=== PATIENT | female | born 1985 | race Caucasian/White ===

== ENCOUNTER → 2018-12-18 15:18 | Outpatient (CLI) | payer BC, SELFPAY ==
--- NOTE | 2018-12-18 | DI.US.S_ITS ---
PROCEDURE: US PELVIC COMPLETE INDICATIONS: EVALUATE IUD PLACEMENT TECHNIQUE: Real-time scanning was performed of the pelvic organs, with image documentation. Additional endovaginal scanning was necessary due to incomplete visualization of the adnexal and endometrial structures by transabdominal scanning. COMPARISON: None. FINDINGS: Transabdominal scanning: Limited scanning through the kidneys shows no hydronephrosis. No pathologic free abdominal or pelvic fluid. Endovaginal scanning: Uterus: Uterus is normal in size at 16.6 x 10.3 x 8.5 cm. The endometrium measures 8-9 mm in combined thickness. IUD is visualized although not well seen due to fibroid. It appears appropriately positioned. Right intramural fibroid measuring 8.8 x 8.3 x 8.1 cm Ovaries: Right ovary measures 4.3 x 3.2 x 2.9 cm. Left ovary measures 3.9 x 3.1 0.2 cm. Complex cystic region seen involving the right ovary measuring 1.9 x 1.9 x 1.6 cm with low level internal echoes IMPRESSION: IUD not well seen sonographically due to large uterine fibroid although appears appropriately positioned. Presumed hemorrhagic or involuting right ovarian follicle. Dictated by: Leobardo Herrera M.D. on 12/18/2018 at 17:38 Approved by: Leobardo Herrera M.D. on 12/18/2018 at 17:40
== END ==
PROVIDERS: PCP Nurse Practitioner Family; Visit Provider Nurse Practitioner Family
DX: R10.2 Pelvic and perineal pain (principal); D25.1 Intramural leiomyoma of uterus; Z97.5 Presence of (intrauterine) contraceptive device
CPT/HCPCS: 76830; 76856

== ENCOUNTER → 2020-04-21 08:20 | Outpatient (CLI) | payer OTHER, SELFPAY ==
[2020-04-21 08:54] LABS: Add Manual Diff / Slide Review NO; Basophils Absolute Auto 0 /uL (0-100); Basophils Percent Auto 0.5 % (0-2); Eosinophils Absolute Auto 200 /uL (0-450); Eosinophils Percent Auto 2.2 % (2-4); Hemoglobin 14.1 g/dL (12.0-16.0); Lymphocytes Absolute Auto 1900 /uL (1100-4500); Lymphocytes Percent Auto 23.1 % (25-40); Mean Corpuscular HGB Conc 33.6 % (30-36); Mean Corpuscular Hemoglobin 29.9 PG (26-34); Mean Corpuscular Volume 89.1 fL (80-100); Monocytes Absolute Auto 500 /uL (0-900); Monocytes Percent Auto 6.3 % (3-14); Neutrophils Absolute Auto 5500 /uL (1500-7000); Neutrophils Percent Auto 67.9 % (50-75); Platelet Count 246 X10^3/uL (150-400); Red Blood Cell Count 4.72 X10^6/uL (4.0-5.2); Red Cell Distribution Width 13.2 % (11.6-14.8); White Blood Cell Count 8.1 X10^3/uL (4.5-11.0)
[2020-04-21 09:51] LABS: Free T4, Direct Thyroxine 1.16 ng/dL (0.78-2.19)
[2020-04-21 10:05] LABS: Thyroid Stimulating Hormone 2.74 uIU/mL (0.47-4.68)
[2020-04-21 15:27] LABS: Rubella Antibody IgG 45.6 IU/mL (>15)
[2020-04-22 08:28] LABS: Varicella IgG Antibody 573 index (Immune >165)
== END ==
PROVIDERS: PCP Internal Medicine; Referring Provider Obstetrics & Gynecology; Visit Provider Obstetrics & Gynecology
DX: Z31.69 Encounter for other general counseling and advice on procreation (principal)
CPT/HCPCS: 36415; 84439; 84443; 85025; 86762; 86787

== ENCOUNTER → 2020-06-28 15:33 | Outpatient (CLI) | payer OTHER, SELFPAY ==
[2020-06-28] MEDS: COVID-19 VACC #1, MRNA(MOD) 100 MCG/0.5 ML VIAL IM (15:45)
== END ==
PROVIDERS: PCP Internal Medicine; Visit Provider Internal Medicine
DX: Z23 Encounter for immunization (principal)
CPT/HCPCS: 0011A; 91301

== ENCOUNTER → 2020-07-29 15:44 | Outpatient (CLI) | payer OTHER, SELFPAY ==
[2020-07-29] MEDS: COVID-19 VACC #2, MRNA(MOD) 100 MCG/0.5 ML VIAL IM (15:50)
== END ==
PROVIDERS: PCP Internal Medicine; Visit Provider Internal Medicine
DX: Z23 Encounter for immunization (principal)
CPT/HCPCS: 0012A; 91301

== ENCOUNTER → 2020-10-24 08:50 | Outpatient (CLI) | payer OTHER, SELFPAY ==
[2020-10-24 10:20] LABS: Progesterone, Total 2.44 ng/mL
== END ==
PROVIDERS: PCP Internal Medicine; Referring Provider Obstetrics & Gynecology; Visit Provider Obstetrics & Gynecology
DX: N97.9 Female infertility, unspecified (principal)
CPT/HCPCS: 36415; 84144

== ENCOUNTER → 2020-11-04 09:22 | Outpatient (CLI) | payer OTHER, SELFPAY ==
[2020-11-04 10:37] LABS: Prolactin 10.3 ng/mL (3.0-18.6)
[2020-11-04 10:38] LABS: Follicle Stimulating Hormone 3.87 mIU/mL
[2020-11-07 17:23] LABS: Estrogen 206 pg/mL (.)
== END ==
PROVIDERS: PCP Internal Medicine; Referring Provider Obstetrics & Gynecology; Visit Provider Obstetrics & Gynecology
DX: N97.9 Female infertility, unspecified (principal)
CPT/HCPCS: 36415; 82397; 82672; 83001; 84146

== ENCOUNTER → 2020-12-20 07:44 | Outpatient (CLI) | payer OTHER, SELFPAY ==
[2020-12-20 09:28] LABS: Progesterone, Total 6.21 ng/mL
== END ==
PROVIDERS: PCP Internal Medicine; Referring Provider Specialist; Visit Provider Specialist
DX: N97.9 Female infertility, unspecified (principal)
CPT/HCPCS: 36415; 84144

== ENCOUNTER → 2021-01-04 16:34 | Outpatient (CLI) | payer OTHER, SELFPAY ==
--- NOTE | 2021-01-04 16:39 | DI.RAD.S_ITS ---
PROCEDURE: XR CERVICAL SPINE 2V OR 3V INDICATIONS: NECK PAIN TECHNIQUE: 3 view(s) of the cervical spine were acquired. COMPARISON: None. FINDINGS: Bones: No fractures or dislocations to the T1 level. The lateral masses of C1 appear intact on the odontoid view. No suspicious bony lesions. Intervertebral disc height is normal at all levels. Soft tissues: No prevertebral soft tissue swelling. IMPRESSION: 1. Normal examination. 2. No osseous lesion. If symptoms and/or clinical suspicion for pathology persists, evaluation with MRI should be considered for further assessment. Dictated by: Cuca Zaragoza MD, PhD on 01/05/2021 at 8:54 Approved by: Cuca Zaragoza MD, PhD on 01/05/2021 at 8:55
== END ==
PROVIDERS: PCP Internal Medicine; Referring Provider Internal Medicine; Visit Provider Internal Medicine
DX: M54.2 Cervicalgia (principal)
CPT/HCPCS: 72040

== ENCOUNTER → 2021-01-16 17:45 | Outpatient (CLI) | payer OTHER, SELFPAY | PROVIDERS: PCP Internal Medicine; Referring Provider Specialist; Visit Provider Specialist | DX: N97.0 Female infertility associated with anovulation (principal) | CPT/HCPCS: 36415; 84144 ==

== ENCOUNTER → 2021-03-21 14:07 | Outpatient (CLI) | payer OTHER, SELFPAY ==
--- NOTE | 2021-03-21 14:07 | DI.US.S_ITS ---
PROCEDURE: US OB <= 14 WEEKS FETUS INDICATIONS: INITIAL VIABILITY DATING OUTSIDE/PRIOR DATING DATA: Last menstrual period (LMP): January 23, 2021 LMP-based estimated date of delivery (STAS): October 30, 2021 First dating scan (date and location): March 21, 2021 Estimated date of delivery (STAS) from first dating scan: November 03, 2021 The calculations are made using the ultrasound STAS of November 03, 2021 TECHNIQUE: Real-time scanning was performed of the fetus and maternal pelvic organs, with image documentation. Endovaginal scanning was also performed to better visualize the fetus and maternal ovaries. COMPARISON: None. FINDINGS: Embryo: Single living intrauterine identified. Yolk sac and pole are identified. Mona-rump length measures 1.3 centimeters corresponding to ultrasound estimated gestational age of 7 weeks 4 days. Heart rate: 155 Maternal organs: 2.6 centimeter in diameter left corpus luteal cyst. Three uterine fibroids identified. Largest uterine fibroid measures 2.8 x 2.1 x 2.6 centimeters and is in the left anterior uterus. IMPRESSION: Single living intrauterine with ultrasound estimated gestational age of 7 weeks 4 days corresponding to ultrasound STAS of November 03, 2021. Dictated by: Cuca Zaragoza MD, PhD on 03/22/2021 at 10:16 Approved by: Cuca Zaragoza MD, PhD on 03/22/2021 at 10:19 We strive to produce accurate, complete, and clear reports of imaging services. To assist us in improving patient care, this report was composed using standard report templates and voice recognition software. Therefore, it may contain abnormal punctuation, misrecognitions, insertions and/or omissions. Occasional wrong-word or sound-alike substitutions may occur. Though we review the report and make efforts to correct it, we do recommend that the report be read carefully in proper context to recognize any text inaccuracies.
[2021-03-21 15:14] LABS: Add Manual Diff / Slide Review NO; Basophils Absolute Auto 100 /uL (0-100); Basophils Percent Auto 0.4 % (0-2); Eosinophils Absolute Auto 200 /uL (0-450); Eosinophils Percent Auto 1.7 % (2-4); Hematocrit 39.1 % (36-46); Hemoglobin 13.5 g/dL (12.0-16.0); Lymphocytes Absolute Auto 2500 /uL (1100-4500); Lymphocytes Percent Auto 19.1 % (25-40); Mean Corpuscular HGB Conc 34.4 % (30-36); Mean Corpuscular Hemoglobin 30.5 PG (26-34); Mean Corpuscular Volume 88.6 fL (80-100); Monocytes Absolute Auto 700 /uL (0-900); Monocytes Percent Auto 5.5 % (3-14); Neutrophils Absolute Auto 9700 /uL (1500-7000); Neutrophils Percent Auto 73.3 % (50-75); Platelet Count 244 X10^3/uL (150-400); Red Blood Cell Count 4.41 X10^6/uL (4.0-5.2); Red Cell Distribution Width 12.6 % (11.6-14.8); White Blood Cell Count 13.3 X10^3/uL (4.5-11.0)
[2021-03-21 15:22] LABS: Appearance Urine UA CLEAR; Bilirubin Urine UA NEGATIVE (NEGATIVE); Color Urine UA YELLOW; Glucose Urine UA NEGATIVE (Negative); Ketones Urine UA NEGATIVE (NEGATIVE); Leukocyte Esterase Urine UA TRACE (NEGATIVE); Nitrite Urine UA NEGATIVE (Negative); Occult Blood Urine UA NEGATIVE (Negative); Protein Urine UA NEGATIVE (Negative); Specific Gravity Urine UA <=1.005 (1.000-1.035); Urobilinogen Urine UA 0.2 E.U./dL (0.2)
[2021-03-21 15:45] LABS: Free T4, Direct Thyroxine 1.11 ng/dL (0.78-2.19)
[2021-03-21 15:59] LABS: Thyroid Stimulating Hormone 1.84 uIU/mL (0.47-4.68)
[2021-03-21 16:14] LABS: Bacteria Urine Moderate (10-30); Culture Indicated Urine Cult Not Indicated; RBC Urine None Seen (0-5/HPF); Squamous Epithelial Cell Urine 5-10 /HPF (0-5/HPF); WBC Urine 1-5/HPF (0-5/HPF)
[2021-03-22 05:22] LABS: Varicella IgG Antibody 593 index (Immune >165)
[2021-03-22 07:37] LABS: RPR Screen Non Reactive (Non Reactive)
[2021-03-23 15:10] LABS: Hepatitis B Surface Antigen NEGATIVE s/c (NEGATIVE); Rubella Antibody IgG 40.2 IU/mL (>15)
[2021-03-23 15:29] LABS: HIV 1 & 2 Ab/Ag 4th Gen Combo NEGATIVE (NEGATIVE); Hep C Virus Ab w/Reflex Quant NEGATIVE s/c (NEGATIVE)
== END ==
PROVIDERS: Specialist; PCP Internal Medicine; Referring Provider Obstetrics & Gynecology; Visit Provider Obstetrics & Gynecology
DX: Z36.87 Encounter for antenatal screening for uncertain dates (principal); O34.81 Maternal care for other abnormalities of pelvic organs, first trimester; N83.12 Corpus luteum cyst of left ovary; Z3A.01 Less than 8 weeks gestation of pregnancy
CPT/HCPCS: 36415; 76801; 76817; 80055; 81003; 81015; 84144; 84439; 84443; 86787; 86803; 86850; 86900; 86901; 87086; 87389

== ENCOUNTER → 2021-05-27 12:13 | Outpatient (CLI) | payer OTHER, SELFPAY ==
[2021-05-31 01:02] LABS: AFP Value 45.5 ng/mL (.); Gest Age on Col Date 17.1 weeks (.); Gestational Age Ultrasound (.); Insulin Dep Diabetes No (.); OSBR Risk 1IN 8106 (.); Results Report (.); Test Results *Screen Negative* (.)
== END ==
PROVIDERS: PCP Internal Medicine; Referring Provider Obstetrics & Gynecology; Visit Provider Obstetrics & Gynecology
DX: Z34.02 Encounter for supervision of normal first pregnancy, second trimester (principal); Z3A.15 15 weeks gestation of pregnancy
CPT/HCPCS: 36415; 82105

== ENCOUNTER → 2021-06-07 11:37 | Outpatient (ROUT) | payer OTHER, SELFPAY ==
[2021-06-07 13:45] LABS: Urine N gonorrhoeae NOT DETECTED
[2021-06-07 13:53] LABS: Urine Chlamydia NOT DETECTED
== END ==
PROVIDERS: PCP Internal Medicine; Visit Provider Obstetrics & Gynecology
DX: Z34.02 Encounter for supervision of normal first pregnancy, second trimester (principal); Z3A.18 18 weeks gestation of pregnancy
CPT/HCPCS: 87491; 87591

== ENCOUNTER → 2021-08-05 11:04 | Outpatient (CLI) | payer OTHER, SELFPAY ==
[2021-08-05 13:19] LABS: Hematocrit 35.8 % (36-46); Hemoglobin 12.3 g/dL (12.0-16.0)
[2021-08-05 13:32] LABS: GTT (PREG) 1 Hour PP 50gm Dose 92 mg/dL (76-139)
== END ==
PROVIDERS: PCP Internal Medicine; Referring Provider Obstetrics & Gynecology; Visit Provider Obstetrics & Gynecology
DX: Z34.02 Encounter for supervision of normal first pregnancy, second trimester (principal); Z3A.26 26 weeks gestation of pregnancy
CPT/HCPCS: 36415; 82950; 85014; 85018

== ENCOUNTER → 2021-10-06 13:36 | Outpatient (CLI) | payer OTHER, SELFPAY ==
[2021-10-07 13:45] LABS: Strep Grp B PCR NEG for Grp B Strep
== END ==
PROVIDERS: PCP Internal Medicine; Visit Provider Obstetrics & Gynecology
DX: Z34.03 Encounter for supervision of normal first pregnancy, third trimester (principal); Z3A.36 36 weeks gestation of pregnancy
CPT/HCPCS: 87653

== ENCOUNTER → 2021-10-26 09:54 | Outpatient (CLI) | payer OTHER, SELFPAY ==
[2021-10-26 10:30] LABS: COVID19 -Nasal RAPID Negative (Negative)
== END ==
PROVIDERS: PCP Internal Medicine; Visit Provider Obstetrics & Gynecology
DX: Z01.812 Encounter for preprocedural laboratory examination (principal); Z20.822 Contact with and (suspected) exposure to COVID-19
CPT/HCPCS: 87635

== ENCOUNTER 2021-10-27 06:01 | Inpatient (IN) | payer OTHER, SELFPAY ==
[2021-10-27 06:13] VITALS: BP 118/60
[2021-10-27 06:56] LABS: Add Manual Diff / Slide Review NO; Basophils Absolute Auto 100 /uL (0-100); Basophils Percent Auto 0.7 % (0-2); Eosinophils Absolute Auto 200 /uL (0-450); Eosinophils Percent Auto 1.2 % (2-4); Hematocrit 35.9 % (36-46); Hemoglobin 12.3 g/dL (12.0-16.0); Lymphocytes Absolute Auto 2300 /uL (1100-4500); Lymphocytes Percent Auto 17.6 % (25-40); Mean Corpuscular HGB Conc 34.2 % (30-36); Mean Corpuscular Hemoglobin 31.1 PG (26-34); Monocytes Absolute Auto 800 /uL (0-900); Monocytes Percent Auto 5.9 % (3-14); Neutrophils Absolute Auto 9900 /uL (1500-7000); Neutrophils Percent Auto 74.6 % (50-75); Platelet Count 181 X10^3/uL (150-400); Red Blood Cell Count 3.94 X10^6/uL (4.0-5.2); Red Cell Distribution Width 12.9 % (11.6-14.8); White Blood Cell Count 13.2 X10^3/uL (4.5-11.0)
--- NOTE | 2021-10-27 07:34 | PM.OBHP.IH.1 ---
OB HPI Date/Time Date of admission: 10/27/21 Date Patient Seen: 10/27/21 Time Patient Seen: 07:35 History of Present Condition Chief complaint: PRIMARY STAS Calculator Estimated Delivery Date Method Current WG Current Estimate 11/03/21 Ultrasound #1 39w 0d Other Estimates 10/30/21 LMP (Certain) 39w 4d 11/03/21 Ultrasound #2 39w 0d Estimated Gestational Age (weeks): 39 : 1 Para: 0 care: good care, initiated at week # (10), number of visits (10) and pounds weight gain (32) Dating criteria OB: LMP confirmed by 1st trimester US Ultrasounds: normal 1st trimester US and normal mid trimester US Obstetrical complications: none Medical complications OB: none Indications Operative indications ( section): previous uterine surgery (myomectomy) Preadmission Labs Last OB Lab Results: Blood Type O Positive 03/21/21 14:57 Antibody Screen Negative 03/21/21 14:57 Hematocrit 35.9 % (36-46) L 10/27/21 06:45 Hemoglobin 12.3 g/dL (12.0-16.0) 10/27/21 06:45 Hepatitis B Surface Antigen Negative s/c (NEGATIVE) 03/21/21 14:57 Hepatitis C Antibody Negative s/c (NEGATIVE) 03/21/21 14:57 Rubella Antibody 40.2 IU/mL (>15) 03/21/21 14:57 Varicella-Zoster IgG Antibody 593 index (Immune >165) 03/21/21 14:57 Glucose 1 Hour 92 mg/dL (76-139) 08/05/21 12:21 Group B Streptococcus (PCR) Neg for grp b strep 10/06/21 13:36 -: Chlamydia screen: negative, Gonorrhea screen: negative and Urine: negative -: PAP smear: Normal Genetic Screens: Cell-free DNA: Normal and Alpha-fetoprotein: Normal External Labs -: Urine: negative Evaluation Evaluation Baseline heart rate: 135 Variability: Moderate (11-25) monitor accelerations: Present Monitor Decelerations: Absent Contraction Frequency (minutes): 6 Uterine Contraction Intensity: Mild Status: Category l [facility] Medical History (Updated 10/01/21 @ 20:50 by Lizeth Herbert MD) Anxiety (~2011) Chronic cough (~2007) Female infertility, unexplained History of headache (~2009) History of neck pain (~2011) Rash of finger (~2005) Uterine fibroid Surgical History (Updated 06/07/21 @ 08:29 by Lizeth Herbert MD) History of ankle surgery (~2001) History of myomectomy (~05/2019) Family History (Updated 04/05/21 @ 12:34 by Grace Tate RN) Father Hyperlipidemia Hemochromatosis Elevated PSA H/O prostate biopsy Asthma Psoriasis Grandfather Stroke Heart disease Diabetes mellitus Non-Hodgkin lymphoma Grandmother Heart disease Breast cancer Grandfather Lung cancer Prostate cancer metastatic to bone Grandmother Alzheimer disease Mother Hypertension Social History (Updated 01/13/19 @ 14:27 by Yudith Campo CMA) marital status: number of children: 0 household members: spouse lives independently: Yes caregiver/support person: No housing: house pets and animals: No education level: other 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 ) substance use type: other (CBD muscle rub, uses occasionally on her neck. ) during the past year weight has: remained stable well-balanced diet: daily or most days daily servings fruits/ve-4 caffeine: Yes (1 black tea per day, Never to soda.) eating out: rarely or never Type(s) of exercise: walking and yoga frequency: 5-6 times per week duration: 45-60 minutes/day additional social history: Education Level: Doctoral Degree Meds Home Medications and Allergies Home Medications Medication Instructions Recorded Confirmed Type fluticasone propionate 110 1 puff inhalation DAILY PRN 04/05/21 10/20/21 History mcg/actuation HFA aerosol inhaler (Flovent HFA) fluticasone propionate 50 1 spray intranasal DAILY PRN 04/05/21 10/20/21 History mcg/actuation nasal spray,suspension prenat.vits,bridgette,fct-yrit-mumak 1 tab PO DAILY 04/05/21 10/20/21 History Allergies Allergy/AdvReac Type Severity Reaction Status Date / Time No Known Drug Allergies Allergy Verified 10/20/21 12:14 OB Exam Narrative Exam Narrative: Generally: Patient is sitting up in bed, no acute distress Lungs: Clear to auscultation bilaterally Cardiovascular: Regular rate and rhythm Fundal height: 39 cm Estimated weight: 7-1/2 lb Extremities: Trace edema Objective Labs Result Diagrams: 10/27/21 06:45 Labs: Laboratory Results - last 24 hr 10/27/21 06:45 WBC 13.2 H RBC 3.94 L Hgb 12.3 Hct 35.9 L MCV 91.0 MCH 31.1 MCHC 34.2 RDW 12.9 Plt Count 181 Neut % (Auto) 74.6 Lymph % (Auto) 17.6 L [place] % (Auto) 5.9 Eos % (Auto) 1.2 L Baso % (Auto) 0.7 Neut # (Auto) 9900 H Lymph # (Auto) 2300 [place] # (Auto) 800 Eos # (Auto) 200 Baso # (Auto) 100 Assessment and Plan Assessment and Plan Assessment and Plan narrative: Assessment: 36-year-old 1 para 0 at 39 weeks gestation with a history of a laparoscopic myomectomy [facility] Medicine recommended a primary section Plan: Primary low-transverse section The risks, benefits, and alternatives to the procedure were explained to the patient. The risks including bleeding, infection, injury to the bowel, bladder, or ureters. She understands these risks and agrees to proceed. A full par Q was held and consent form was signed. Time Spent with Patient Total time spent with greater than 50% in coordination of care (as documented) at patient's floor/unit and/or counseling patient:: 15-24 minutes
--- NOTE | 2021-10-27 07:43 | PM.PREOP ---
Pre-operative Note COVID-19 COVID-19 status: Negative Result date/Date tested (Pos, Neg/Pending): 10/26/21 Criteria for continued procedure: Non-surgical alternatives not available or appropriate per current SOC Interval Note History & Physical reviewed/Exam performed by Physician: Yes Changes to H&P: No H&P completed within 30 days and has changed as indicated here:: 10/27/21
[2021-10-27] MEDS: CEFAZOLIN 2 GM/20 ML SYRINGE IV (08:10)
[2021-10-27] MEDS: LACTATED RINGERS 1,000 ML 100 ML IV ×3 (08:15→12:45)
--- NOTE | 2021-10-27 08:36 | SUR.OPER ---
Supine on Padded OR bed, head on pillow, safety belt at thigh, arms secured on padded arm boards at <90 degrees abduction. Bump under right buttock. Legs uncrossed with pillow under knees, gel pad to heels, tape over blanket to lower legs. Gel pad placed between patients posterior upper leg and urinary catheter tubing.
[2021-10-27 09:26] VITALS: BP 103/50; PULSE 68; RESP 16; TEMP 36.1; O2SAT 99
--- NOTE | 2021-10-27 09:26 | P.OP_ITS ---
Operative Date/Time/Diagnoses Date of procedure: 10/27/21 Time of procedure: 09:26 Pre-op diagnosis: Thirty-nine weeks gestation Previous uterine surgery Post-op diagnosis: same Procedure & Clinicians Procedure: Primary low-transverse section Same procedure as scheduled: Yes Indications: 39 weeks gestation Previous uterine surgery Surgeon: Lizeth Herbert Click Yes if Unassisted: No Stepdown Nurse: Cirilo Patel Reason for Stepdown Nurse: The trust operations assistant was necessary to retract upon entry into the abdomen and uterus. The trust operations assistant aided in delivery of the by providing fundal pressure. On exiting the uterus and abdomen the trust operations assistant was necessary for retraction and clipping of suture. He also closed the contralateral fascia. Anesthesia Type: Spinal (With Duramorph) Operative Notes Findings: Live male in the [facility] presentation Normal uterus and ovaries Left tube with a small paratubal cyst Venous Rocha at the lower uterine segment Closure Type: primary Specimen(s): cord blood Intraoperative meds administered: Duramorph, Ketorolac and Pitocin Applied: Catheter (To continuous drainage) Estimated Blood Loss (mL): 600 Blood products transfused: none Procedure in detail: The patient was taken to the operating room where she was placed in the seated position. Spinal anesthesia was administered. She was then placed in the dorsal supine position with a leftward tilt. She was prepped and draped in the usual sterile fashion. A timeout was performed. After spinal analgesia was found to be adequate, a Pfannenstiel skin incision was made 2 fingerbreadths above the pubic symphysis and carried through to the underlying layer fascia. The fascia was nicked in the midline, and the incision extended bilaterally with the Fried scissors. The superior aspect of the fascial incision was grasped with a Jericho clamps, elevated, and the underlying rectus muscles dissected off sharply and bluntly. Attention was then turned to the inferior aspect of this incision which in a similar fashion was grasped with a Jericho clamps, elevated, and the underlying rectus muscles dissected off sharply and bluntly. The rectus muscles were in the midline. The peritoneum was identified, grasped between 2 hemostats, and entered sharply with the Metzenbaum scissors. This incision was extended superiorly and inferiorly with good visualization of the bladder. The bladder blade was inserted. The vesicouterine peritoneum was identified, grasped with the pickup, and entered sharply with the Metzenbaum s cissors. This incision was extended bilaterally, and the bladder flap was created digitally. The bladder blade was reinserted. The lower uterine segment was incised in a transverse fashion with the scalpel. There was a venous rocha that had to be cut through to get to the uterine cavity. There was some bleeding. The 's head was delivered with vacuum assistance. The nose and mouth were suctioned with bulb suction. The remainder of the body delivered without difficulty. The cord was double clamped and cut after milking the cord. The was handed off to waiting RN. The placenta was delivered manually. The uterus was cleared of all clots and debris. The uterine incision was repaired with #1 chromic in a running interlocking fashion, and a second layer the same suture was used for an imbricating layer. Hemostasis was achieved. The tubes and ovaries were examined and were found to be normal except for a small left paratubal cyst which was removed with cautery. The gutters were cleared of all clots and debris. The bladder flap was reapproximated using 2-0 Vicryl in a running fashion. The parietal peritoneum was closed using 2-0 Vicryl in a running fashion. The fascia was reapproximated using 0 Vicryl in a running fashion. Subcutaneous layer was copiously irrigated with warm normal saline. 7 simple interrupted sutures of 3-0 Vicryl were placed to reapproximate the subcutaneous layer. The skin was closed with 4-0 Monocryl in a subcuticular fashion. Steri-Strips were placed. An Aquacel dressing was placed. The uterus was expressed of a small amount of old blood. Sponge, lap, and instrument counts were correct x-2. The patient tolerated the procedure well, and was taken to PACU in stable condition. Complications: none Baby 1: Infant Gender: Male Presentation: vertex Position: Left Occiput Anterior Placental Delivery Description: Expressed Cord Vessel Description: 3 Vessels and Clamped/Cut score (1 min): 8 score (5 min): 9 weight: 7 lb 4.6 oz Post-operative Condition: stable Disposition: PACU Aftercare: routine postop
[2021-10-27 09:31] VITALS: BP 116/53; PULSE 65; RESP 16; O2SAT 97
[2021-10-27 09:36] VITALS: BP 113/54; PULSE 68; RESP 15; O2SAT 98
[2021-10-27 09:43] VITALS: BP 106/50; PULSE 68; RESP 20; O2SAT 98
[2021-10-27 09:45] VITALS: BP 112/55; PULSE 68; RESP 16; O2SAT 98
--- NOTE | 2021-10-27 09:55 | SUR.PHASEI ---
0945: Pt A&Ox4 reports pain as tolerable, VSS. Blood flow noted with fundus check, one pad from OR 04/11 saturated, new pad placed, fundus check again with blood flow, report given to receiving RN using SBAR with time allowed for questions. This RN transported pt to room 2, bedside handoff to receiving RN.
[2021-10-27] MEDS: ONDANSETRON 4 MG/2 ML INJ IV ×3 (11:42→20:18)
[2021-10-27] MEDS: hydrOXYzine 50 MG/ML INJ 25 MG IM (13:11)
[2021-10-27] MEDS: KETOROLAC 30 MG/ML VIAL IV ×2 (15:03→21:10)
[2021-10-27] MEDS: PROMETHAZINE 25 MG TABLET PO (17:26)
[2021-10-27] MEDS: METHYLERGONOVINE 0.2 MG TABLET PO (20:21)
[2021-10-28] MEDS: METHYLERGONOVINE 0.2 MG TABLET PO (02:50)
[2021-10-28] MEDS: KETOROLAC 30 MG/ML VIAL IV (03:04)
--- NOTE | 2021-10-28 07:21 | PM.OBPN.1 ---
Subjective - OB Subjective Patient comments: other (Severe nausea and vomiting until 8pm last night) baby status: doing well and nursing well feeding status: exclusively breast feeding Date Patient Seen: 10/28/21 Time Patient Seen: 07:21 Interval history: Patient is a 36-year-old 1 para 1 postop day # 1 status post primary low-transverse section at 39 weeks gestation due to previous uterine surgery. She had significant nausea and vomiting and till 8:00 p.m. last night. She has kept down some fluids and some applesauce since then. She is up walking around in the room. She is feeling much better. Pain is well controlled. Exam Vital Signs (past 8 hours): Oxygen Delivery Method Room Air Narrative Exam Narrative: Generally: Patient walking around in room, no acute distress Lungs: Clear to auscultation bilaterally Cardiovascular: Regular rate and rhythm Fundus: Firm at U -1 Incision: Clean dry and intact with Aquacel dressing Extremities: No edema, negative Homans Objective Labs Result Diagrams: 10/27/21 06:45 Labs: Laboratory Results - last 24 hr 10/27/21 06:45 Blood Type O Positive Antibody Screen Negative Assessment & Plan Plan day: 1 plan OB: routine postop care Time Spent With Patient Time: Total time spent is greater than 50% in coordination of care (as documented) at patient's floor/unit and/or counseling patient: Time with patient: 15-24 minutes
[2021-10-28] MEDS: DOCUSATE 100 MG CAPSULE 200 MG PO (09:20)
[2021-10-28] MEDS: PRENATAL VIT,CALC/IRON/FOLIC 1 TABLET 1 TAB PO (09:21)
[2021-10-28] MEDS: LANOLIN OINT 7 GM 1 APPLIC TOP (09:22)
[2021-10-28] MEDS: IBUPROFEN 600 MG TABLET PO ×3 (09:22→21:49)
[2021-10-28 11:08] LABS: Hemoglobin 8.8 g/dL (12.0-16.0)
[2021-10-28] MEDS: ACETAMINOPHEN 325 MG TABLET 650 MG PO ×2 (14:38→20:54)
[2021-10-28 15:33] VITALS: TEMP 36.6
[2021-10-29] MEDS: ACETAMINOPHEN 325 MG TABLET 650 MG PO ×2 (03:34→10:41)
[2021-10-29] MEDS: IBUPROFEN 600 MG TABLET PO ×2 (03:52→09:47)
[2021-10-29] MEDS: DOCUSATE 100 MG CAPSULE 200 MG PO (09:28)
[2021-10-29] MEDS: PRENATAL VIT,CALC/IRON/FOLIC 1 TABLET 1 TAB PO (09:33)
[2021-10-29 09:47] VITALS: TEMP 36.7
[2021-10-29 12:15] VITALS: BP 112/62; PULSE 76; RESP 17; TEMP 36.7
--- NOTE | 2021-10-29 14:34 | PM.OBDS.1 ---
Discharge Providers Provider Date of admission: 10/27/21 06:01 Discharge Date: 10/29/21 Primary care physician: YVROSE Rollins Consults: 10/27/21 10:56 Consult to Sponsorship Coordinator Routine Comment: 10/29/21 07:31 Consult to Sponsorship Coordinator Routine Comment: Discharge provider: Lizeth Herbert MD Summary Hospital Course Date Patient Seen: 10/29/21 Time Patient Seen: 11:30 Diagnoses: Thirty-nine weeks gestation Previous uterine surgery Primary low-transverse section Hospital Course: Patient is a 36-year-old 1 para 1 who presented on October 27, 2021 for a scheduled primary section at 39 weeks gestation due to a previous laparoscopic myomectomy. She underwent this procedure without complication. Her postoperative course was complicated by a tardive dyskinesia related to Reglan, and significant nausea and vomiting associated with Duramorph. On postop day # 1 she was feeling much better. She was able to eat and drink. The catheter was removed and she was able to void spontaneously. She showered. Her bleeding was tapering. Pain was well controlled. going well. She is discharged home on postop day # 2. She will follow-up at 1 week for an Aquacel dressing removal. Peripartum Data Infant Delivery Method: Section Laceration Description: None Episiotomy description: None Procedures: Spinal anesthesia Primary low-transverse section complications: other (Nausea and vomiting, tardive dyskinesia) [place] 1: Gender: Male Disposition of : home Status at Discharge Cognitive/behavioral status at discharge: oriented Functional status at discharge: independent ambulation Overall status at discharge: patient is progressing back to baseline Time Spent with Patient Time attestation: Total time spent providing and/or coordinating discharge services: Time spent: Less than 30 minutes Objective Labs Result Diagrams: 10/28/21 11:05 Exam Vital Signs (past 8 hours): - 10/29/21 09:47 10/29/21 12:15 Temperature 98.0 F 98.0 F Pulse Rate 76 Respiratory Rate 17 Blood Pressure 112/62 Oxygen Delivery Method Room Air Narrative Exam Narrative: Generally: Patient is sitting in chair, nursing infant, no acute distress Lungs: Clear to auscultation bilaterally Cardiovascular: Regular rate and rhythm Fundus: Firm at U -1 Incision: Clean dry and intact with Aquacel dressing Extremities: Trace edema Discharge Plan Discharge Plan Patient Disposition: Home Provider Discharge Comment: Call with fever, chills, redness or drainage around the incision, or bleeding vaginally more than a pad in an hour Push oral fluid Stool softener until bowels returned to normal Ibuprofen 600 mg every 6 hours as needed Tylenol 650 mg every 6 hours as needed Discharge orders & Medications Prescriptions: New tramadol 50 mg tablet 50 mg PO Q4H PRN (Reason: pain) Qty: 14 0RF Continued prenat.vits,bridgette,[id number]-ykfgb Tablet 1 tab PO DAILY Flovent HFA 110 mcg/actuation HFA aerosol inhaler 1 puff INHALATION DAILY PRN fluticasone propionate 50 mcg/actuation spray,suspension 1 spray NASAL DAILY PRN Follow up/Referrals: Lizeth Herbert MD [Physician] - 11/03/21 9:30 am (One week Aquacel dressing removal) Diet/Activity/Treatments Diet: Regular Activity: No heavy lifting Skin/Wound/Dressing Care Report to your healthcare provider any signs of infection, such as:: chills, fever, increased pain, unusual drainage and unusual redness Dressing: Do not remove Visit Report/Discharge Packet Instructions: DI for , DI for Prescription Opioid Use Stand Alone Forms: Discharge: Care Discharge Data Primary Care Provider: Melissa Pacheco
== END 2021-10-29 12:55 | disposition home or self-care (01) | DRG 788 ==
PROVIDERS: Admitting Provider Obstetrics & Gynecology; PCP Internal Medicine; Referring Provider Obstetrics & Gynecology; Visit Provider Obstetrics & Gynecology
PROC: 10D00Z1 Extraction of Products of Conception, Low, Open Approach (ICD-10-PCS; CPT 59514; principal; 2021-10-27 07:45)
DX: O82 Encounter for cesarean delivery without indication (principal); O34.29 Maternal care due to uterine scar from other previous surgery; Z3A.39 39 weeks gestation of pregnancy; Z37.0 Single live birth; O99.893 Other specified diseases and conditions complicating puerperium; G24.01 Drug induced subacute dyskinesia; T45.0X5A Adverse effect of antiallergic and antiemetic drugs, initial encounter; Y92.239 Unspecified place in hospital as the place of occurrence of the external cause; R11.2 Nausea with vomiting, unspecified; N83.8 Other noninflammatory disorders of ovary, fallopian tube and broad ligament; Z20.822 Contact with and (suspected) exposure to COVID-19
CPT/HCPCS: 36415; 59050; 59510; 59514; 85014; 85018; 85025; 86850; 86900; 86901; 87635; J0690; J1885; J2250; J2274; J2405; J3410

== ENCOUNTER → 2023-09-16 08:54 | Outpatient (CLI) | payer OTHER, SELFPAY ==
--- NOTE | 2023-09-16 | DI.US.S_ITS ---
ULTRASOUND OF RIGHT BREAST: 09/16/2023 CLINICAL: Subareolar right breast mass. No prior exams were available for comparison. Color flow and real-time ultrasound of the right breast were performed on the areas of interest. Rodriguez scale images of the real-time examination were reviewed. IMPRESSION: NEGATIVE There is no sonographic evidence of malignancy. There is no mammographic or sonographic abnormality seen in the right breast to correspond with the now-resolved palpable abnormality and pain, however, clinical followup is recommended. Return to annual mammogram screening schedule is recommended. This exam was interpreted at Station ID: [id number]. Electronically Signed By: India weiss/:09/16/2023 15:10:09 letter sent: Normal Exam Ultrasound BI-RADS: 1 Negative
--- NOTE | 2023-09-16 | DI.MG.S_ITS ---
BILATERAL DIGITAL DIAGNOSTIC MAMMOGRAM 3D/2D: 09/16/2023 CLINICAL: Baseline.subareolar right breast mass. No prior exams were available for comparison. Both breasts are heterogeneously dense, which may obscure small masses (category c / 51-75% glandular tissue). No significant masses, calcifications, or other findings are seen in either breast. IMPRESSION: INCOMPLETE: NEEDS ADDITIONAL IMAGING EVALUATION There is no mammographic abnormality seen in the right breast to correspond with the palpable abnormality, however, targeted ultrasound of the right breast is recommended and will be performed immediately following this exam. Based on Tyrer-Cuzick model (a risk assessment model), the patient's lifetime risk is 23.8% and her 10 year risk is 2.6%. If a patient has an elevated risk, a more comprehensive evaluation should be considered and/or a referral to a genetic counselor. The [place] [employer], [place] [employer], and NCCN Guidelines advise the consideration of Breast MRI as an adjunct to screening mammography in patients whose Lifetime risk to develop breast cancer is 20% or higher. This exam was interpreted at Station ID: [id number]. NOTE: For mammograms, a report in lay terms will be sent to the patient. Approximately 15% of breast malignancies will not be visualized mammographically. In the management of a palpable breast mass, a negative mammogram must not discourage biopsy of a clinically suspicious lesion. Electronically Signed By: India weiss/:09/16/2023 15:08:30 ACR BI-RADS Category 0: Incomplete [id number]
== END ==
PROVIDERS: PCP Internal Medicine; Referring Provider Internal Medicine; Visit Provider Internal Medicine
DX: N63.41 Unspecified lump in right breast, subareolar (principal); R92.8 Other abnormal and inconclusive findings on diagnostic imaging of breast; R92.333 Mammographic heterogeneous density, bilateral breasts
CPT/HCPCS: 76642; 77066; G0279

== ENCOUNTER → 2023-11-03 08:59 | Outpatient (CLI) | payer OTHER, SELFPAY ==
--- NOTE | 2023-11-03 09:00 | DI.MRI.S_ITS ---
PROCEDURE: MR FOOT RT WO CON INDICATIONS: HALLUX RIGIDUS/EVAL FOR OSTEOCHONDRAL LESION TECHNIQUE: Multiphasic, multisequence MRI of the forefoot was performed, without intravenous contrast administration. COMPARISON: None. FINDINGS: Image quality: Excellent. Bones and joints: Moderate degenerate change of the 1st metatarsophalangeal joint with associated subchondral marrow edema. No osteochondral lesion about the 1st metatarsophalangeal joint. The hallucal sesamoids are unremarkable. Soft tissues: Muscles normal in signal. Visualized plantar fascia is unremarkable. The flexor, and the extensor tendons are unremarkable. The Lisfranc ligament is intact. IMPRESSION: Moderate degenerative change of the 1st metatarsophalangeal joint with subchondral marrow edema. No osteochondral lesion about the 1st metatarsophalangeal joint. Dictated by: Ebonie Oakley M.D. on 11/04/2023 at 11:05 Approved by: Ebonie Oakley M.D. on 11/04/2023 at 11:10
== END ==
PROVIDERS: PCP Internal Medicine; Referring Provider Orthopaedic Surgery Foot and Ankle Surgery; Visit Provider Orthopaedic Surgery Foot and Ankle Surgery
DX: M20.21 Hallux rigidus, right foot (principal)
CPT/HCPCS: 73718

== ENCOUNTER → 2023-12-13 11:48 | Outpatient (CLI) | payer OTHER, SELFPAY ==
[2023-12-14 13:12] LABS: Candida species Positive (Negative); Gardnerella vaginalis Negative (Negative); Trichomoas vaginalis Negative (Negative)
== END ==
PROVIDERS: PCP Internal Medicine; Visit Provider Obstetrics & Gynecology
DX: N89.8 Other specified noninflammatory disorders of vagina (principal)
CPT/HCPCS: 87480; 87510; 87660

== ENCOUNTER → 2024-09-11 17:27 | Outpatient (CLI) | payer OTHER, SELFPAY ==
[2024-09-11 19:02] LABS: Progesterone, Total 4.44 ng/mL
== END ==
PROVIDERS: Referring Provider Obstetrics & Gynecology; Visit Provider Obstetrics & Gynecology
DX: E28.2 Polycystic ovarian syndrome (principal)
CPT/HCPCS: 36415; 84144

== ENCOUNTER → 2024-10-15 17:06 | Outpatient (CLI) | payer OTHER, SELFPAY ==
--- NOTE | 2024-10-15 17:08 | DI.RAD.S_ITS ---
PROCEDURE: XR FOOT RT MIN 3V INDICATIONS: RT ANKLE PAIN TECHNIQUE: 3 views of the foot were acquired. COMPARISON: None. FINDINGS: Bones: No fractures or dislocations. No suspicious bony lesions. Soft tissues: No tibiotalar joint effusion. Achilles tendon appears normal. IMPRESSION: No acute bony abnormality. Dictated by: Ted Otto M.D. on 10/18/2024 at 17:33 Approved by: Ted Otto M.D. on 10/18/2024 at 17:33
== END ==
PROVIDERS: Referring Provider Registered Nurse; Visit Provider Registered Nurse
DX: M20.21 Hallux rigidus, right foot (principal)
CPT/HCPCS: 73630

== ENCOUNTER → 2024-11-07 10:54 | Outpatient (CLI) | payer OTHER, SELFPAY ==
[2024-11-07 12:42] LABS: HCG Quantitative /Beta subunit 29.12 mIU/mL
== END ==
PROVIDERS: Referring Provider Obstetrics & Gynecology; Visit Provider Obstetrics & Gynecology
DX: N92.6 Irregular menstruation, unspecified (principal)
CPT/HCPCS: 36415; 84702

== ENCOUNTER → 2024-11-09 07:51 | Outpatient (CLI) | payer OTHER, SELFPAY ==
[2024-11-09 09:37] LABS: HCG Quantitative /Beta subunit 25.42 mIU/mL
== END ==
PROVIDERS: PCP Registered Nurse; Referring Provider Obstetrics & Gynecology; Visit Provider Obstetrics & Gynecology
DX: N92.6 Irregular menstruation, unspecified (principal)
CPT/HCPCS: 36415; 84702

== ENCOUNTER → 2024-11-13 08:38 | Outpatient (CLI) | payer OTHER, SELFPAY ==
[2024-11-13 09:31] LABS: Follicle Stimulating Hormone 3.82 mIU/mL; HCG Quantitative /Beta subunit 17.20 mIU/mL
== END ==
PROVIDERS: PCP Registered Nurse; Referring Provider Registered Nurse; Visit Provider Obstetrics & Gynecology
DX: Z31.9 Encounter for procreative management, unspecified (principal); R79.89 Other specified abnormal findings of blood chemistry; N92.6 Irregular menstruation, unspecified
CPT/HCPCS: 36415; 83001; 84702